=== PATIENT | male | born 1970 | race Caucasian/White ===

== ENCOUNTER 2017-02-01 11:25 | Emergency (ER) | payer OTHER ==
[2017-02-01 11:30] VITALS: RESP 16
[2017-02-01] MEDS ORDERED: OXYCODONE/APAP 5/325 TAB PO ONE ×2 (12:27→12:28)
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
[2017-02-01 13:26] VITALS: BP 111/78; PULSE 55; TEMP 96.8; O2SAT 96
== END 2017-02-01 13:26 | disposition home or self-care (01) ==
DX: S22.41XA Multiple fractures of ribs, right side, initial encounter for closed fracture (principal); V18.0XXA Pedal cycle driver injured in noncollision transport accident in nontraffic accident, initial encounter; Y92.89 Other specified places as the place of occurrence of the external cause; Y99.8 Other external cause status; Y93.55 Activity, bike riding